=== PATIENT | female | born 1990 | race Caucasian/White ===

== ENCOUNTER 2019-01-27 11:50 | Outpatient (CLI) | payer MEDICAID ==
[~2019-01-27] VITALS: Ht 144.8 cm; Wt 61.0 kg
[2019-01-27 12:10] VITALS: BP 120/80; PULSE 85; RESP 18; Ht 144.8 cm; Wt 61.0 kg
--- NOTE | 2019-01-31 09:54 | PN ---
Triage Information Date/Time late entry for service on 01/27/19 Reason for visit: non reactive heart tracing Weeks of Gestation 38w2d /Para Diabetes: none Hypertention: none Objective Vital Signs Date Temp Pulse Resp B/P (MAP) Pulse Ox O2 O2 Flow FiO2 Time Delivery Rate 01/27/19 98.3 85 18 120/80 98 Room Air 12:10 (93) Heart Rate: 140's Heart Rate Comments CAT I Contractions: None Disposition: Discharge Assessment/Plan A IUP 38w2d reactive strip , went over with Dr Diego Roche discharge home will be followed on wed at [facility] ELSA NOGUERA MD January 31, 2019 09:54
== END 2019-01-27 15:10 | disposition home or self-care (01) ==
LOC: OBT 11:50 → L-D 11:51 → OBT 15:10
PROVIDERS: ATTEND Obstetrics & Gynecology
DX: O76 Abnormality in fetal heart rate and rhythm complicating labor and delivery (principal); Z3A.38 38 weeks gestation of pregnancy
CPT/HCPCS: G0463

== ENCOUNTER 2019-01-28 10:33 | Inpatient (IN) | payer MEDICAID ==
[2019-01-28] MEDS ORDERED: LACTATED RINGER'S 1,000 ML IV SCH (11:15)
[2019-01-28] MEDS ORDERED: OXYTOCIN 30 UNITS/LR 500 ML IV SCH ×2 (11:30→16:33)
[2019-01-28] MEDS ORDERED: MISOPROSTOL 200 MCG TAB PR PRN ×2 (11:30→17:00)
[2019-01-28] MEDS ORDERED: BUTORPHANOL 2 MG INJ IV PRN ×2 (11:30)
[2019-01-28] MEDS ORDERED: OXYTOCIN 30 UNITS/LR 500 ML IV PRN ×2 (11:30→17:00)
[2019-01-28] MEDS ORDERED: CARBOPROST 250 MCG INJ IM PRN ×2 (11:30→17:00)
[2019-01-28] MEDS ORDERED: METHYLERGONOVINE 0.2 MG INJ IM PRN ×2 (11:30→17:00)
[2019-01-28] MEDS ORDERED: LIDOCAINE 1% (MPF) 30 ML INJ INJ PRN (11:30)
--- NOTE | 2019-01-28 13:40 | PREAC ---
Date/Time of Note Date/Time of Note DATE: 01/28/19 TIME: 13:39 Anesthesia Eval and Record Evaluation Time Pre-Procedure Interview DATE: 01/28/19 TIME: 13:39 Age 28 Sex female NPO: Other Preoperative diagnosis labor pain Planned procedure epidural Past Medical History Past Medical History: None Surgery & Anesthesia Issues No known issue Meds Anticoagulation: No Beta Berenice within 24 hr: No Reason Beta Berenice not given: Pt. not on B-Berenice No Active Prescriptions or Reported Meds Current Medications Lidocaine (Xylocaine 1% (Mpf)) 30 ml ONCE PRN INJ .EPISIOTOMY; Start 01/28/19 at 11:30 Oxytocin/Lactated Ringer's 500 ml @ 500 mls/hr ONCE POST IV ; Start 01/28/19 at 11:30 Oxytocin/Lactated Ringer's 500 ml @ 125 mls/hr POST IV ; Start 01/28/19 at 11:30 Oxytocin/Lactated Ringer's 500 ml @ 0 mls/hr ONCE PRN IV .VAGINAL BLEEDING; Sta rt 01/28/19 at 11:30 Methylergonovine Maleate (Methergine) 0.2 mg ONCE PRN IM .VAGINAL BLEEDING; Sta rt 01/28/19 at 11:30 Carboprost Tromethamine (Hemabate) 250 mcg ONCE PRN IM .VAGINAL BLEEDING; Start 01/28/19 at 11:30 Misoprostol (Cytotec) 1,000 mcg ONCE PRN NM .VAGINAL BLEEDING; Start 01/28/19 at 11:30 Lactated Ringer's 1,000 ml @ 125 mls/hr Q8H IV Last administered on 01/28/19at 12:14; Admin Dose 125 MLS/HR; Start 01/28/19 at 11:15 Butorphanol Tartrate (Stadol) 1 mg Q2H PRN IV .PAIN SCALE 1-5; Start 01/28/19 at 11:30 Butorphanol Tartrate (Stadol) 2 mg Q2H PRN IV .PAIN SCALE 6-10; Start 01/28/19 at 11:30 Meds reviewed: Yes Allergies Coded Allergies: No Known Allergy (Unverified , 01/24/15) Allergies Reviewed: Yes Labs/Studies Labs Reviewed: Reviewed by anesthesiologist Result Diagram: 01/28/19 1215 Laboratory Tests 01/28/19 12:15 Blood Bank Test 01/28/19 12:15 Rh Immune Globulin Candidate NO test: N/A Pre-procedure Exam Airway: Adequate mouth opening, Adequate thyromental dist Mallampati: Mallampati III Teeth: Normal Lung: Normal Heart: Normal ASA Physical Status ASA physical status: 2 Emergency: None Pre-operative Attestations Prior to commencing anesthesia and surgery, the patient was re-evaluated, there was verification of: *The patient's identity *The results of appropriate recent lab work and preoperative vital signs *The above evaluation not changing prior to induction *Anesthetic plan, risk benefits, alternative and complications discussed with patient/family; questions answered; patient/family understands, accepts and wishes to proceed. TAMARA CALDERON DO January 28, 2019 13:40
[2019-01-28] MEDS ORDERED: FENTAnyl 50 MCG/ML VIAL ONE (13:48)
--- NOTE | 2019-01-28 13:58 | HP ---
Date/Time of Note Date/Time of Note DATE: 01/28/19 TIME: 13:56 OB - History Hx of Present Free Text/Dictation 28-year-old 3 para 2 at 38 weeks and 3 days of gestation with estimated date of delivery February 08, 2019 Patient presents in active labor with regular contractions She reports positive movement, denies vaginal bleeding or leaking fluid GBS status is negative Estimated Due Date: Feb 08, 2019 : 3 Para: 2 Care: Good Care Abnormal Ultrasound Findings: Fetus suspected with Down syndrome and congenital heart disease Past Family/Social History * Past Medical, Surgical, Family and Obstetric Histories reviewed from chart. OB Admission Exam Physical Exam HEENT: WNL Heart: Rhythm Normal Lungs: Clear, Equal Abdomen: WNL Extremities: Normal Reflexes: Normal Cervical Dilatation: 5cm Effacement: 100% Station: -2 Membranes: Intact Heart Rate: 140's Accelerations: Accelerations Present Decelerations: No Decelerations Varibility: Moderate Contractions on Admission: < 5 Minutes Apart Intensity: Moderate Last 72 hours Lab Results CBC & BMP 01/28/19 12:15 PROCEDURE: US OB. CLINICAL INDICATION: Macrosomia TECHNIQUE: Multiple sonographic images of the pelvis were obtained. The images were reviewed on a PACS workstation. COMPARISON: 01/27/2019 FINDINGS: The cervix length is obscured . There is a single viable intrauterine gestation. Cardiac activity is present with 125 beats per minute. The fetus is in longitudinal lie, cephalic presentation.. Measurements were made in order to determine age. The results are as follows: BPD = obscured HC = obscured AC = 32.9 cm FL = 6.8 cm. Based on these current measurements: Estimated gestational age of approximately 35 weeks 6 days. Estimated gestational age by LMP or early exam is 38 weeks 3 days. The estimated date of delivery is 02/26/2019. Estimated date of delivery by LMP or early exam is 02/08/2019. The EFW = 2.91 kg . Complete survey is not performed at this time. The placenta is fundal. There is no evidence of abruption or placenta previa. ANGEL LUIS = not measured. IMPRESSION: 1. Single live intrauterine fetus at approximately 35 weeks 6 days by the above biometrics. The estimated weight is 2.91 kg . 2. Longitudinal lie, cephalic presentation. 3. Unremarkable fundal placenta. RPTAT:AAJJ Physician Kavita Date Time Electronically viewed and signed by Braden Allen Physician on 01/28/2019 16:16 GW/ CC: JESUS SOUSA MD [phone] OB Assessment/Plan Reason for admission: active labor Induction Method: per Pitocin Protocol Other plan: Admit to labor and delivery Pain meds as needed Neonatology consultation Copies To: CC: GADIEL KRUGER ; JESUS SOUSA MD January 28, 2019 13:58
[2019-01-28] MEDS ORDERED: NALOXONE (0.4 MG/ML) INJ IV PRN (14:00)
[2019-01-28] MEDS ORDERED: FENTAnyl 2MCG/ML-ROPIV 0.2% 100 ML BAG EPI SCH (14:00)
[2019-01-28] MEDS: LACTATED RINGER'S 1,000 ML IV* SCH (16:33)
--- NOTE | 2019-01-28 16:36 | LDN ---
Date/Time of Note Date/Time of Note DATE: 01/28/19 TIME: 16:34 Delivery Summary Weeks of Gestation Term gestation Placenta Delivered: Spontaneously Meconium: none Episiotomy: No Anesthesia type: Epidural Estimated blood loss: 200 Sponge & Needle done & correct: Yes All needle counts correct: Yes Any foreign bodies felt in the: No Infant Delivery Information Sex Sex: male Apgars 1 Minute: 8 5 Minute: 9 Suctioning Nose & mouth suctioned at buck: Yes Delee suction performed: No Umbilical Cord Umbilical cord with: 3 Vessels Cord presentations: nuchal cord (X1 around the neck manually reduced) Cord Blood was obtained: Yes Mother & Baby Disposition Disposition Baby's weight 7 pounds 8 ounces/ 3415 g Neonatology present at the time of the delivery Copies To: CC: GADIEL KRUGER BAHAREH MD January 28, 2019 16:36
[2019-01-28] MEDS: OXYTOCIN 30 UNITS/LR 500 ML IV SCH ×2 (16:54→17:33)
[2019-01-28] MEDS ORDERED: BENZOCAINE 20% 56 ML SPRAY TOP PRN (17:00)
[2019-01-28] MEDS ORDERED: DIBUCAINE 1% 30 GM OINT TOP PRN (17:00)
[2019-01-28] MEDS ORDERED: WITCH HAZEL/GLYCERIN PAD PR PRN (17:00)
[2019-01-28] MEDS ORDERED: ACETAMINOPHEN 325 MG TAB PO PRN ×2 (17:00)
[2019-01-28] MEDS ORDERED: MAGNESIUM HYDROXIDE 30ML CUP PO PRN (17:00)
[2019-01-28] MEDS ORDERED: SENNA/DOCUSATE NA (8.6MG/50MG) TAB PO PRN (17:00)
[2019-01-28] MEDS ORDERED: LANOLIN HPA 1 PKT TOP PRN (17:00)
[2019-01-28] MEDS ORDERED: ONDANSETRON 4 MG INJ IV PRN (17:00)
[2019-01-28 20:30] VITALS: BP 125/79; PULSE 74; RESP 19
[2019-01-28] MEDS: IBUPROFEN 600 MG TAB PO PRN (23:38)
[2019-01-29] VITALS: BP 118/69; PULSE 80; RESP 17
[2019-01-29] MEDS: LACTATED RINGER'S 1,000 ML IV* SCH (00:33)
[2019-01-29 03:34] VITALS: BP 101/61; PULSE 77; RESP 17
[2019-01-29] MEDS: IBUPROFEN 600 MG TAB PO PRN ×2 (05:48→23:44)
[2019-01-29 08:00] VITALS: BP 89/54; PULSE 75; RESP 10
--- NOTE | 2019-01-29 13:17 | DS ---
Date/Time of Note Date/Time of Note DATE: 01/29/19 TIME: 13:17 Obstetrical Discharge Record Final Diagnosis Final Diagnosis: Term delivered Other Final Diagnosis 28 years old -0-0-3 s/p normal vaginal delivery at 38 weeks and 3 days. PPD#1 - AF, VSS - Baby with possible Down syndrome, currently at bed side. The baby will transfer to NICU for hyperbilirubinemia. She is bonding well - Contraception methods with R/B/A/FR discussed - Continue care - Discharge home tomorrow - Rx and instruction given - Follow up in 2 and 6 weeks at clinic Vaginal Delivery Obstetrical Delivery: Spontaneous Condition on Discharge Physical Assessment Last Vitals: Vital Signs Date Temp Pulse Resp B/P (MAP) Pulse Ox O2 O2 Flow FiO2 Time Delivery Rate 01/29/19 98.2 75 10 89/54 (66) Room Air 08:00 Voiding: Yes Bowel Movement: Yes Breast: Soft, non-tender Fundus: Firm Calf Tenderness: No Patient Condition: Stable GADIEL KRUGER January 29, 2019 13:17
--- NOTE | 2019-01-29 13:17 | PN ---
Date/Time of Note Date/Time of Note DATE: 01/29/19 TIME: 13:12 OB Subjective Subjective Subjective PPD# 2 Patient is doing well. She denies nausea, vomiting, shortness of breath, chest pain, headache. She has been ambulating without difficulty, tolerating regular diet. Pain is well controlled on current medications OB Objective Objective Objective Vital Signs Date Temp Pulse Resp B/P (MAP) Pulse Ox O2 O2 Flow FiO2 Time Delivery Rate 01/29/19 98.2 75 10 89/54 (66) Room Air 08:00 General: AAO X 3, comfortable, NAD, appropriate mood and affect. ABD: +BS. Soft, non-tender. Uterus 2 cm below umbilicus Flank: No CVA tenderness (B/L) LE: Mild edema. No clubbing, cyanosis, thigh or calf tenderness (B/L). Homans 'sign is negative OB Assessment/Plan Other plan: 28 years old -0-0-3 s/p normal vaginal delivery at 38 weeks and 3 days. PPD#1 - AF, VSS - Baby with possible Down syndrome, currently at bed side. The baby will transfer to NICU for hyperbilirubinemia. She is bonding well - Contraception methods with R/B/A/FR discussed - Continue care - Discharge home tomorrow - Rx and instruction given - Follow up in 2 and 6 weeks at clinic GADIEL KRUGER January 29, 2019 13:17
[2019-01-29 15:54] VITALS: BP 96/57; PULSE 88; RESP 18
[2019-01-29 20:35] VITALS: BP 122/67; PULSE 84; RESP 18
[2019-01-30 03:27] VITALS: BP 95/56; PULSE 71; RESP 18
[2019-01-30] MEDS: IBUPROFEN 600 MG TAB PO PRN (05:44)
[2019-01-30 08:34] VITALS: BP 109/75; PULSE 76; RESP 18
--- NOTE | 2019-01-30 09:29 | DS ---
Date/Time of Note Date/Time of Note DATE: 01/30/19 TIME: 09:28 Obstetrical Discharge Record Final Diagnosis Final Diagnosis: Term delivered Other Final Diagnosis day #2 Status post Patient stable and afebrile Vital signs stable Hematology - 72 Hrs Test 01/28/19 12:15 01/29/19 07:27 Hematocrit 40.4 % (37.0-47.0) # 33.3 % (37.0-47.0) L Hemoglobin 14.0 g/dl (12.0-16.0) # 11.2 g/dl (12.0-16.0) L Mean Corpuscular 31.0 pg (29.0-33.0) 31.0 pg (29.0-33.0) Hemoglobin Mean Corpuscular 34.7 g/dl (32.0-37.0) 33.6 g/dl (32.0-37.0) Hemoglobin Concent Mean Corpuscular Volume 89.4 fl (82.0-101.0) 92.2 fl (82.0-101.0) Mean Platelet Volume 10.7 fl (7.4-10.4) #H 10.6 fl (7.4-10.4) H Platelet Count 225 10^3/UL (140-415) 185 10^3/UL (140-415) Red Blood Count 4.52 10^6/ul (4.20-5.40) 3.61 10^6/ul (4.20-5.40) # #L Red Cell Distribution 13.7 % (11.5-14.5) 13.7 % (11.5-14.5) Width White Blood Count 5.8 10^3/ul (4.8-10.8) # 8.7 10^3/ul (4.8-10.8) # Abdomen soft, fundus firm Perineum intact Extremities nontender Assessment and plan Patient stable and doing well Plan to discharge home Patient instructed to follow-up with [facility] in 2 and 6 weeks Vaginal Delivery Obstetrical Delivery: Spontaneous Condition on Discharge Physical Assessment Last Vitals: VS - Last 72 Hours, by Label Date Temp Pulse Resp B/P (MAP) Pulse Ox O2 O2 Flow FiO2 Time Delivery Rate 01/30/19 97.7 76 18 109/75 98 Room Air 08:34 (86) 01/30/19 98.1 71 18 95/56 (69) Room Air 03:27 01/29/19 97.9 84 18 122/67 Room Air 20:35 (85) 01/29/19 98.0 88 18 96/57 (70) 15:54 01/29/19 98.2 75 10 89/54 (66) Room Air 08:00 01/29/19 98.1 77 17 101/61 Room Air 03:34 (74) 01/29/19 97.8 80 17 118/69 Room Air 00:00 (85) 01/28/19 98.5 74 19 125/79 Room Air 20:30 (94) Voiding: Yes Bowel Movement: Yes Breast: Soft, non-tender Fundus: Firm Calf Tenderness: No Patient Condition: Good Copies To: CC: GADIEL KRUGER ; JESUS SOUSA MD January 30, 2019 09:29
--- NOTE | 2019-01-30 11:14 | PAC ---
Date/Time of Note Date/Time of Note DATE: 01/30/19 TIME: 11:14 Post-Anesthesia Notes Post-Anesthesia Note Last documented vital signs Vital Signs Date Temp Pulse Resp B/P (MAP) Pulse Ox O2 O2 Flow FiO2 Time Delivery Rate 01/30/19 97.7 76 18 109/75 98 Room Air 08:34 (86) Activity: WNL Respiratory function: WNL Cardiovascular function: WNL Mental status: Baseline Pain reasonably controlled: Yes Hydration appropriate: Yes Nausea/Vomiting absent: Yes TAMARA CALDERON DO January 30, 2019 11:14
--- NOTE | 2019-01-31 13:16 | DELSUM ---
Delivery Summary A-C Datetime Report Generated by CPN: 01/31/2019 13:16 DELIVERY PERSONNEL Coil Connector: Jose, Judi MATERNAL INFORMATION Delivery Anesthesia: Epidural Delivery QBL (ml): 200 Placenta Cultured: No Maternal Complications: None LABOR SUMMARY EDC: 02/08/2019 00:00 No. Babies in Womb: 1 Attempted: No Labor Anesthesia: Epidural LABOR INFORMATION Reason for Induction: Not Applicable Onset of Labor: 01/28/2019 06:00 Oxytocin: N/A Group B Beta Strep: Done, Result Unknown Antibiotics # of Doses: 0 Steroids Given: None Reason Steroids Not Administered: Not Applicable MEMBRANES Membranes Rupture Method: Artificial Rupture of Membranes: 01/28/2019 16:12 Length of Rupture (hr): 0.03 Amniotic Fluid Color: Clear Amniotic Fluid Amount: Small Amniotic Fluid Odor: None STAGES OF LABOR Stage 3 hr: 0 Stage 3 min: 2 Total Time in Labor hr: 10 Total Time in Labor min: 16 VAGINAL DELIVERY Episiotomy: None Laceration Extension: N/A Laceration Type: None Laceration Repair: Not Applicable Initial Vag Sponge Count: 10 Final Vag Sponge Count: 1 Initial Vag Sharps Count: 10 Final Vag Sharps Count: 1 Sponge Count Correct: Yes; Vaginal Sweep Performed Sharps Count Correct: Yes BABY A INFORMATION Delivery Date/Time: 01/28/2019 16:14 Method of Delivery: Vaginal Born in Route : No : N/A Forceps: N/A Vacuum Extraction: N/A Shoulder Dystocia : No SHOULDER DYSTOCIA BABY A Delivery Date/Time: 01/28/2019 16:14 PRESENTATION/POSITION BABY A Presentation: Cephalic Cephalic Presentation: Vertex Vertex Position: Left Occipital Anterior Breech Presentation: N/A PLACENTA INFORMATION BABY A Placenta Delivery Time : 01/28/2019 16:16 Placenta Method of Delivery: Spontaneous Placenta Status: Delivered SCORES BABY A Heart Rate 1 min: >100 bpm Resp Effort 1 min: Good Cry Reflex Irritability 1 min: Cough/Sneeze/Pulls Away Muscle Tone 1 min: Active Motion Color 1 min: Blue/Pale Resuscitation Effort 1 min: Tactile Stimulation SCORE 1 MIN: 8 Heart Rate 5 min: >100 bpm Resp Effort 5 min: Good Cry Reflex Irritability 5 min: Cough/Sneeze/Pulls Away Muscle Tone 5 min: Active Motion Color 5 min: Body [place], Extremit Blue Resuscitation Effort 5 min: Tactile Stimulation SCORE 5 MIN: 9 INFANT INFORMATION BABY A Gestational Age at Delivery: 38.3 Gestational Status: Early Term- 37- 38.6 Weeks Outcome : Liveborn Infant Condition : Stable Sex: Male IDENTIFICATION/MEDS BABY A ID Band Number: [id number] Sensor Applied: Yes Sensor Number: [id number] Sensor Location : Cord Clamp WEIGHT/LENGTH BABY A Infant Birthweight (gm): 3415 Infant Weight (lb): 7 Infant Weight (oz): 8 Length (in): 20.50 Infant Length (cm): 52.07 CORD INFORMATION BABY A No. Cord Vessels: 3 Nuchal Cord : Around Neck x1, Loose Cord Blood Taken: Yes Suction: Mouth; Nose ASSESSMENT BABY A Infant Complications: None Physical Findings- Other: Indications of Down's Syndrome Infant Respirations: Appears Normal Ingot Supervisor/ALS Called : Yes Infant Care By: NICU Transferred To: Remains with Mother
--- NOTE | 2019-02-01 22:16 | NSTRPT ---
NST Information Datetime Report Generated by CPN: 02/01/2019 22:15 Datetime: 01/27/2019 10:15 NST Information EGA: 38.2 Test Number: 3 Time on Monitor: 01/27/2019 10:36 Time off Monitor: 01/27/2019 11:05 NST Duration (Min): 29 Reason for NST: Other Reason for NST Other: Positive Down's Syndrome, Congenital Heart Disease Test and Monitor Explained: Monitor Explained; Test Explained; Verbalized Understanding Pulse: 86 Resp: 18 SBP: 109 DBP: 73 Test Evaluation NST Interventions: Reposition Patient; Acoustic Stimulation NST Interventions Other: 1056 _ 1102 reposition to maternal left _ maternal right;1057 FAS with n o accel following Contraction Frequency: x1/90/mild/pain level 0 FHR Baseline : 135 Variability: Moderate 6-25bpm Accelerations: 10X10 Decelerations: None FHR Category: Category I NST Results: Non-Reactive Provider Notified: Dr Cortez reviewed strip _ recommends extended monitoring in tria Comments: PT TO U/S ANGEL LUIS 14.2 CM CEPHALIC Report to Chrissy Couch RN, records _ preliminary US report faxed to triage [id number] Dr Hadadian informed of pt HX _ nonreactivee NST, orders received to send pt to the hospital for extended monitoring Electronically Signed By E-Signature: with User ID: [id number] Datetime: 01/24/2019 10:31 NST Information EGA: 37.6 NST Duration (Min): 41 Datetime: 01/20/2019 10:21 NST Information EGA: 37.2 Datetime: 01/20/2019 10:19 NST Duration (Min): 27
== END 2019-01-30 13:16 | disposition home or self-care (01) | DRG 807 ==
LOC: L-D 10:33 → OBT 10:33 → L-D 11:37 → PP1 20:11
PROVIDERS: ADMIT Obstetrics & Gynecology; ATTEND Obstetrics & Gynecology
PROC: 10E0XZZ Delivery of Products of Conception, External Approach (ICD-10-PCS; principal; 2019-01-28)
DX: O69.81X0 Labor and delivery complicated by cord around neck, without compression, not applicable or unspecified (principal); Z37.0 Single live birth; Z3A.38 38 weeks gestation of pregnancy
CPT/HCPCS: 62322; 76815; 85025; 85610; 85730; 86592; 86850; 86900; 86901; 87340; 99464; G0463; J2210; J2590; J3010; J7120